=== PATIENT | female | born 1985 | race Two or more races ===

== ENCOUNTER 2019-03-26 06:26 | Inpatient (IN) ==
[2019-03-26] MEDS ORDERED: Phenylephrine Inj 50 MCG in Sodium Chloride 0.9% vial 0.5 ML IVP PRN (07:06)
[2019-03-26] MEDS ORDERED: diphenhydrAMINE 50 MG/1 ML VIAL IVP PRN ×2 (07:06→12:35)
[2019-03-26] MEDS ORDERED: BUTORPHANOL TARTRATE 2 MG/1 ML VIAL IVP PRN (07:06)
[2019-03-26] MEDS ORDERED: Nalbuphine Inj 20 MG/ML Ampule IVP PRN ×2 (07:06→12:35)
[2019-03-26] MEDS ORDERED: CefOXitin Inj 2 GM in Sodium Chloride 0.9% 100 ML IV PRN (07:06)
[2019-03-26] MEDS ORDERED: Carboprost Inj 250 MCG/ML AMP IM PRN (07:06)
[2019-03-26] MEDS ORDERED: METHYLERGONOVINE MALEATE 0.2 MG/1 ML VIAL IM PRN (07:06)
[2019-03-26] MEDS ORDERED: Lidocaine 1% 10 MG/ML - 20 ML VIAL SUBCUT PRN (07:06)
[2019-03-26] MEDS ORDERED: Naloxone Inj 0.01 MG in Sodium Chloride 0.9% vial 1 ML IVP PRN (07:06)
[2019-03-26] MEDS ORDERED: MISOPROSTOL 200 MCG TABLET RECTAL PRN (07:06)
[2019-03-26] MEDS ORDERED: ePHEDrine Inj 50 MG/ML AMP IVP PRN (07:06)
[2019-03-26] MEDS ORDERED: LIDOCAINE W/ SODIUM BICARB 0.5 ML SYR SUBD PRN (07:06)
[2019-03-26] MEDS ORDERED: CITRIC ACID/SODIUM CITRATE 30 ML CUP PO PRN (07:06)
[2019-03-26] MEDS ORDERED: NALOXONE 0.4 MG/1 ML VIAL IVP PRN (07:06)
[2019-03-26] MEDS ORDERED: OXYTOCIN 10 UNIT/1 ML IM PRN (07:06)
[2019-03-26] MEDS ORDERED: Metoclopramide Inj 10 MG/2 ML VIAL IV PRN (07:06)
[2019-03-26] MEDS ORDERED: CALCIUM CARBONATE 500 MG (TUMS) CHEWABLE TABLET PO PRN ×2 (07:06→12:35)
[2019-03-26] MEDS ORDERED: TERBUTALINE SULFATE 1 MG/1 ML SDV SUBCUT PRN (07:06)
[2019-03-26] MEDS ORDERED: ONDANSETRON 4 MG/2 ML VIAL IVP PRN ×2 (07:06→12:35)
[2019-03-26] MEDS ORDERED: LIDOCAINE HCL 2 % 10 ML JELLY URO-JECT TOPICAL PRN ×2 (07:06→12:35)
[2019-03-26] MEDS ORDERED: FAMOTIDINE 20 MG/2 ML VIAL IVP PRN ×2 (07:06)
[2019-03-26] MEDS ORDERED: fentaNYL Inj 100 MCG/2 ML VIAL IVP PRN (07:06)
[2019-03-26] MEDS ORDERED: Oxytocin 20 Units + LR 20 UNIT/1,000 ML BAG IV SCH ×2 (07:15→12:35)
[2019-03-26] MEDS ORDERED: Lactated Ringers-OB Dept 1,000 ML PRIMARY IV SCH (07:15)
[2019-03-26 07:21] LABS: Hematocrit [HCT] 39.3 % (37.0-47.0); Hemoglobin [HGB] 13.4 g/dL (12.0-16.0); MEAN CORPUSCULAR HGB CONC 34.1 g/dL (33-37); MEAN CORPUSCULAR VOLUME 90.1 FL (81-99); MEAN PLATELET VOLUME 12.2 FL (7.4-12.2); RED BLOOD COUNT 4.36 10^6/uL (4.20-5.40)
--- NOTE | 2019-03-26 11:16 | OB.PROGRES ---
Date of Service: 03/26/19 Time of Service: 10:22 Interval History: Pt is a 33 yo at 38 2/7 weeks who normally gets her care in [place]. Apparently they have no OR capabilities in [place] today. Pt states that she slept well last night, and then got up this morning and had SROM with clear fluid. She did notice 1 small clot in the fluid. She presented to our labor and delivery unit. Her has been complicated by a marginal previa noted early in and again at 20 weeks. She did see MFM from [place] at 24 and 28 weeks, placenta was normal at 28 weeks. She has had no third trimester bleeding. She is GBS negative. Blood type B+. Rubella immune. Hep b, HIV negative. Gc/chla mydia negative. Objective - Cervical Exam Cervical Exam: 6-7/70/-2/soft/vertex [place]: every 2-3 minutes, palpating moderate to hard Heart Rate: 135-140, moderate variability. No decels noted. Heart Rate Interpretation Category: Category I - Labs CBC and BMP: 03/26/19 07:00 - Vital Signs Last Taken Vital Signs: Vital Signs - Last Taken Temperature 97.4 F 03/26/19 08:24 Pulse Rate 87 03/26/19 08:24 Respiratory Rate 14 03/26/19 08:24 Blood Pressure 101/62 03/26/19 08:24 Pulse Ox 98 03/26/19 08:24 Assessment and Plan - Patient Problems (1) Active labor at term Current Visit: Yes Status: Acute - Assessment / Plan Additional Assessment/Plan Details: -GBS negative. -h/o marginal previa, resolved per MFM at 28 weeks. -h/o 3 previous uncomplicated vaginal deliveries. -pt wishing for natural at this time. -expectant management. - Time/Visit Time Spent With Patient: Less Than 15 Minutes
--- NOTE | 2019-03-26 12:17 | OB.DEL.SUM ---
Delivery Note Delivery Summary: Samantha is at 33 yo G5 now P4 at 38 2/7 weeks by early u/s who presented this morning after SROM at home with clear fluid. complicated by marginal placenta previa (resolved at 28 weeks per MFM). She was GBS negative. Cervix was 4/70/-3 upon admit at 0640. She progressed on her own to c/c/+3 at 1139. She pus hed x 1 and delivered a viable male , over an intact perineum. There was no nuchal cord. Time of delivery was 1141. Baby's nose and mouth were suctioned with the bulb suction and baby was placed on mom's chest. Cord blood and cord gases were obtained. Cord clamping was delayed x 1 minute. The cord was then doubly clamped by myself and cut by the father of the baby. The placenta delivered spontaneously and intact with a 3 vessel cord at 1146. 20 mU of pitocin were infused. The vagina and perineum were examined and no lacerations were noted outside of very tiny bilateral periurethral skid morris. These were hemostatic and thus not repaired. Apgars were 8 at 1 minute and 9 at 5 minutes. Baby weighed 6# 9.9 oz and was 18 inches long. EBL 200 cc. Both mom and baby tolerated delivery well and are in stable condition at this time. - Patient Problems (1) Active labor at term Current Visit: Yes Status: Acute
[2019-03-26] MEDS ORDERED: GLYCERIN/WITCH HAZEL 1 BOX TOPICAL PRN (12:35)
[2019-03-26] MEDS ORDERED: Lidocaine 1% 10 MG/ML - 20 ML VIAL INTRADERM PRN (12:35)
[2019-03-26] MEDS ORDERED: diphenhydrAMINE 25 MG CAPSULE PO PRN (12:35)
[2019-03-26] MEDS ORDERED: Ondansetron ODT Tab 4 MG TAB PO PRN (12:35)
[2019-03-26] MEDS ORDERED: ACETAMINOPHEN 325 MG TABLET PO PRN (12:35)
[2019-03-26] MEDS ORDERED: BENZOCAINE/MENTHOL SPRAY 56 GM BOTTLE TOPICAL PRN (12:35)
[2019-03-26] MEDS ORDERED: LANOLIN HPA 40 GM TUBE TOPICAL PRN (12:35)
[2019-03-26] MEDS ORDERED: DIPH,PERTUSS,TET(ADACEL) VAC/PF 0.5 ML (Tdap) IM ONE (12:35)
[2019-03-26] MEDS ORDERED: HYDROcodone-APAP 5 MG -325 MG TABLET PO PRN (12:35)
[2019-03-26] MEDS: IBUPROFEN 800 MG TABLET PO PRN ×2 (12:48→21:35)
--- NOTE | 2019-03-26 17:24 | CONSULT ---
Consult Note - Consult Consult Date: 03/26/19 Reason for Consult: PreOp Consulation : General Surgery Requesting Physician: Anna Lauren MD Primary Care Provider: Anna Lauren - History of Present Illness History of Present Illness: Samantha Guerin 03/26/2019 04:27 PM Location: Homero Pineda MD Patient #: [id number] : 1985 Language: Undefined / Race: Undefined / Ethnicity: Undefined Gender: Female History of Present Illness (Homero Pineda MD FACS 03/26/2019 04:33 PM) The patient is a 33 year old female who presents today for a visit. Note for " Visit": She delivered her 4th baby this morning, normal spontaneous vaginal without complication. She wishes to undergo bilateral tubal ligation. Her was in the room when I spoke with her and he agrees with this plan. I am seeing the patient at the request of Dr. Lauren Allergies (Homero Pineda MD FACS; 03/26/2019 04:45 PM) No Known Drug Allergies 03/26/2019 Past Medical History (Homero Pineda MD FACS; 03/26/2019 04:50 PM) No Known Problems - Status is Inactive (03/26/2019) (Marked as Inactive) Medication History (Homero Pineda MD FACS; 03/26/2019 04:34 PM) vitamins with iron (one PO daily) Active. Past Surgical (Homero Pineda MD FACS; 03/26/2019 04:33 PM) None (03/26/2019) Review of Systems (Homero Pineda MD FACS; 03/26/2019 04:51 PM) Respiratory Note: Note: no asthma or COPD Cardiovascular Note: Note: no hypertension Psychiatric Note: Note: no depression or anxiety Endocrine Note: Note: no diabetes or thyroid disease Physical Exam (Homero Pineda MD FACS; 03/26/2019 04:46 PM) The physical exam findings are as follows: General Color is good. The patient appears in no acute distress. The patient is ambulatory. Eye sclera anicteric Chest and Lung Exam Chest AP diameter is normal for body habitus. Lungs are clear to auscultation bilaterally. Normal inspiratory effort. Cardiovascular The heart has a regular rate and rhythm without murmur or gallop. The PMI is not displaced. The precordium is not hyperdynamic. Abdomen The abdomen is soft and non-tender. Bowel sounds are present and of hypoactive Liver span is normal to palpation. No surgical scars noted. Samantha Guerin Patient #: [id number] : 1985 (33 years) Tuesday, March 26, 2019 Page 1 / 2 Assessment & Plan (Homero Pineda MD FACS; 03/26/201904:50 PM) ENCOUNTER FOR FEMALE STERILIZATION PROCEDURE (Z30.2) Current Plans: Lab and imaging studies: hemoglobin 13 g/dL. Hematocrit 39%. White count 9000. Platelet count 147,000. Urinalysis normal. Assessment: fertile, requesting sterilization Plan: laparoscopic bilateral tubal ligation. Risks, complications, and alternatives have been explained to the patient and the patient understands and consents. Questions were answered. Copy to: Anna Lauren MD This clinic note was created in part using voice recognition software. Occasionally, dictated words may be misinterpreted by the software and not identified and corrected by editing. Questionnaires: Homero Pineda Past Medical History Tobacco Use: Never Smoker In the Past 12 Months, Have Used or Abuse Any of the Following Substance: None Medication / Allergies Allergies/Adverse Reactions: Allergies Allergy/AdvReac Type Severity Reaction Status Date / Time No Known Allergies Allergy Unverified 03/26/19 07:18 Results - Labs CBC and BMP: 03/26/19 07:00 Exam - Vitals Vital Signs: Vital Signs Temperature 98.3 F Temperature Source Oral Pulse Rate [Pulse Oximeter] 100 Pulse Rate 88 Respiratory Rate 14 Blood Pressure [Left Arm] 107/58 Pulse Ox 95 Oxygen Delivery Method Room Air Height 5 ft 2 in Weight 234 lb
[2019-03-27 05:01] LABS: Hematocrit [HCT] 34.7 % (37.0-47.0); Hemoglobin [HGB] 11.9 g/dL (12.0-16.0); MEAN CORPUSCULAR HGB CONC 34.3 g/dL (33-37); MEAN CORPUSCULAR VOLUME 90.6 FL (81-99); MEAN PLATELET VOLUME 12.1 FL (7.4-12.2); RED BLOOD COUNT 3.83 10^6/uL (4.20-5.40)
[2019-03-27] MEDS ORDERED: ROCURONIUM 10 MG/1 ML - 5 ML VIAL IVP ONE (07:28)
[2019-03-27] MEDS ORDERED: SUCCINYLCHOLINE CHLORIDE 20 MG/1 ML - 10 ML ONE (07:28)
[2019-03-27] MEDS ORDERED: fentaNYL Inj 100 MCG/2 ML VIAL ONE (07:37)
[2019-03-27] MEDS ORDERED: BUPIVACAINE 0.5% W/ EPI - 10 ML VIAL ONE (07:44)
[2019-03-27] MEDS ORDERED: ceFAZolin Inj 1 GM in Sodium Chloride 0.9% 100 ML IV ONE (07:45)
[2019-03-27] MEDS ORDERED: Lactated Ringers 1,000 ML PRIMARY IV ONE (08:09)
[2019-03-27] MEDS ORDERED: Lidocaine Inj 1% 20 ML ONE (08:11)
[2019-03-27] MEDS ORDERED: DEXAMETHASONE PF 10 MG/1 ML VIAL ONE (08:20)
[2019-03-27] MEDS ORDERED: KETOROLAC 30 MG/1 ML VIAL ONE (08:20)
[2019-03-27] MEDS ORDERED: ceFAZolin 1 GM VIAL ONE (08:25)
[2019-03-27] MEDS ORDERED: SUGAMMADEX SODIUM 200 MG/2 ML VIAL IV ONE (08:36)
[2019-03-27] MEDS ORDERED: ceFAZolin Inj 2 GM in Sodium Chloride 0.9% 100 ML IV ONE (08:39)
--- NOTE | 2019-03-27 08:58 | CRNA.PROGR ---
Anesthesia Time - Procedure/Recovery Time Start Date: 03/27/19 End Date: 03/27/19 Anesthesia : Time In: 08:00 Anesthesia : Time Out: 09:03 Anesthesia : Total Time: 63 - Total Anesthesia Time Total Anesthesia Time (minutes): 63 - Other Weight: 106.141 kg Height: 5 ft 2 in Body Mass Index (BMI): 42.7 Physical Status: P2 Anesthesia Type: General Anesthesia : ET ([facility])
--- NOTE | 2019-03-27 08:58 | CRNA.PROGR ---
Post Anesthesia Phase II - Post Anesthesia Phase II Patient Stable and Discharged To: Phase II Care Assumed By Surgeon: Other Temperature: 98.3 F Pulse Rate: 94 Respiratory Rate: 20 Pulse Ox: 96 Total Lamonte Score at Discharge: 9 Post Anesthesia Discharge Criteria Met: Yes
[2019-03-27] MEDS ORDERED: Prenatal Multivitamin Tab 1 TAB TAB PO SCH (09:00)
[2019-03-27] MEDS ORDERED: DOCUSATE 100 MG CAPSULE PO SCH ×2 (09:00→21:00)
[2019-03-27] MEDS ORDERED: D5-1/2NS 1,000 ML PRIMARY IV SCH ×2 (09:24)
[2019-03-27] MEDS ORDERED: IBUPROFEN 800 MG TABLET PO PRN (09:24)
[2019-03-27] MEDS ORDERED: GLYCERIN/WITCH HAZEL 1 BOX TOPICAL PRN (09:24)
[2019-03-27] MEDS ORDERED: ACETAMINOPHEN 325 MG TABLET PO PRN (09:24)
[2019-03-27] MEDS ORDERED: CALCIUM CARBONATE 500 MG (TUMS) CHEWABLE TABLET PO PRN (09:24)
[2019-03-27] MEDS ORDERED: LANOLIN HPA 40 GM TUBE TOPICAL PRN (09:24)
[2019-03-27] MEDS ORDERED: HYDROcodone-APAP 5 MG -325 MG TABLET PO PRN (09:24)
[2019-03-27] MEDS ORDERED: diphenhydrAMINE 50 MG/1 ML VIAL IVP PRN (09:24)
[2019-03-27] MEDS ORDERED: BENZOCAINE/MENTHOL SPRAY 56 GM BOTTLE TOPICAL PRN (09:24)
[2019-03-27] MEDS ORDERED: diphenhydrAMINE 25 MG CAPSULE PO PRN (09:24)
[2019-03-27] MEDS ORDERED: Ondansetron ODT Tab 4 MG TAB PO PRN (09:24)
--- NOTE | 2019-03-27 09:47 | GEN.OPNOTE ---
Operative Note Surgery Date: 03/27/19 Preoperative Diagnosis: Encounter for sterilization Postoperative Diagnosis: Same Procedure: Laparoscopic, bilateral tubal fulguration with division Surgeon: Homero Pineda Commercial Development Manager: Other (None) Anesthesia Provider: Brijesh Santoyo MD Anesthesia Type: General Estimated Blood Loss (mL): 5 Operative Summary: LAPAROSCOPIC COAGULATION OF BOTH FALLOPIAN TUBES (49736) Routine () Pre-operative diagnosis: [place], requesting sterilization Post-operative diagnosis: Same Procedure: Laparoscopic bilateral tubal ligation (CPT 77720) Commercial Development Manager: None Anesthesia: General endotracheal, Brijesh Santoyo D.O. Indications: The patient is a 33-year-old whod just delivered her 4th child. She and her no longer wish to have children and their preferred method of control is bilateral tubal ligation. Procedure: The patient was placed in the supine position and prepped and draped in a sterile fashion after an adequate level of general anesthesia was obtained. I injected a 50-50 mix of Marcaine and lidocaine in the soft tissues of the left lower quadrant of the abdominal wall. A 5 mm incision and a Visiport was used to enter the peritoneal cavity under direct visualization. Pneumoperitoneum was established to a pressure of 15 mm mercury using carbon dioxide gas. Additional trocars were placed in the suprapubic midline and right lower quadrant of the abdominal wall after injection of local anesthetic and making an appropriately sized incision for 5 mm trocar. The right fallopian tube was grasped and bipolar cautery was used to cauterize a 1.5 cm segment followed by division of this cauterized segment. In a similar fashion, the left fallopian tube was cauterized and divided. The trocars were removed under direct visualization as pneumoperitoneum was released. The trocar sites were closed with a 4-0 Monocryl subcuticular suture and Dermabond. Blood loss was less than 5 ML. There were no complications. Sponge and needle counts were correct. Copy to: Anna Lauren MD This clinic note was created in part using voice recognition software. Occasionally, dictated words may be misinterpreted by the software and not identified and corrected by editing. Homero Pineda
--- NOTE | 2019-03-27 10:14 | OB.PROGRES ---
Subjective Post Day: 1 Pain Management: PO [place] Catheter: No Flatus: No Lochia Color: Serosa/Brown Scant < 10 ml Diet: Regular [place] Feeding Method: / Bottle Ambulating: Yes Concerns / Additional Information: Minimal pain at this point after tubal ligation this morning. Objective - General General Appearance: POSITIVE: No Acute Distress, Cooperative - Cardiovacular Cardiovascular Exam: POSITIVE: RRR, No Murmur Edema: +1 Pedal Edema Extremities: Negative Dom's - Bilaterally - Respiratory Respiratory Exam: POSITIVE: Clear to Auscultation - Bilaterally, Breathing Non Labored - Abdomen Bowel Sounds: Present Abdominal Wound Assessment: [place] Dressing Assesstment / Plan (1) Active labor at term Current Visit: Yes Status: Acute Assessment / Plan: -routine cares. -bottle feeding for now, plans to breast feed at home once her milk comes in. -rh positive. -rubella immune. -f/u: [address] Dr[address] Beaver in [place]. DISCHARGE NOTE: Admitting diagnosis: term IUP, in labor. Desired parity. Discharge diagnosis: same, delivered. Outcome: with bilateral tubal ligation on PPD#1. Disposition: home F/u: [address] Beaver, 1 week post-op check with Dr. Hayden. Diet: regular.
[2019-03-27] MEDS ORDERED: RHO(D) IMMUNE GLOBULIN 1500 UNIT(300 mcg)SYRIN IM PRN (12:02)
[2019-03-27] MEDS ORDERED: HYDROcodone-APAP 5 MG -325 MG TABLET PO SCH (13:15)
== END 2019-03-27 13:25 | disposition home or self-care (01) | DRG 798 ==
LOC: OBOP 06:26 → OBIP 07:06 → OPS 03-27 07:53 → OBIP 03-27 09:10
PROVIDERS: ADMIT Family Medicine; ATTEND Family Medicine